=== PATIENT | female | born 2000 | race Caucasian/White ===

== ENCOUNTER 2023-05-29 15:30 | Emergency (ER) | payer BC, OTHER ==
[2023-05-29 15:50] VITALS: TEMP 98.3; BMI 23.8
[2023-05-29 17:37] LABS: EPI CELLS >36 /uL (0-25.1); HYALINE CASTS 1 /uL (0-3.1); PH,URINE 7.5 (5.0-8.0); URINE APPEARANCE TURBID; URINE BACTERIA 2461 /uL (0-1359); URINE BILIRUBIN NEGATIVE (NEGATIVE); URINE COLOR YELLOW; URINE GLUCOSE (UA) NEGATIVE (NEGATIVE); URINE KETONE NEGATIVE (NEGATIVE); URINE LEUK ESTERASE 1+ (NEGATIVE); URINE NITRITE NEGATIVE (NEGATIVE); URINE PROTEIN NEGATIVE (NEGATIVE); URINE RBC 9 /uL (0-23.9); URINE WBC 18 /uL (0-25.8)
[2023-05-29 17:38] LABS: HCG,QUALITATIVE URINE Negative
[2023-05-29] MEDS ORDERED: CEFTRIAXONE 1 GM in DEXTROSE 5%-WATER - 100 ML IVPB ONE (18:16)
[2023-05-29] MEDS ORDERED: SODIUM CHLORIDE 1,000 ML IV STA (18:16)
[2023-05-29] MEDS ORDERED: KETOROLAC TROMETHAMINE 30 MG/1 ML VIAL IVPUSH ONE (18:17)
[2023-05-29] MEDS ORDERED: CEFTRIAXONE 1 GM/50 ML BAG ONE (20:02)
[2023-05-29 20:40] LABS: BASO % 0.6 % (0-2.0); EOS % 0.9 % (0-4.5); HEMATOCRIT 39.2 % (32.4-45.2); HEMOGLOBIN 12.9 GM/dL (10.7-15.3); MCH 31.2 pg (25.7-33.7); MEAN CELL VOLUME 94.6 fl (80-96); MEAN PLT VOLUME 8.6 fl (7.5-11.1); NEUT % 49.5 % (42.8-82.8); PLATELET COUNT 234 10^3/uL (134-434); RBC 4.15 M/mm3 (3.60-5.2); RDW 13.2 % (11.6-15.6); WHITE BLOOD COUNT 8.2 K/mm3 (4.0-10.0)
[2023-05-29] MEDS ORDERED: KETOROLAC TROMETHAMINE 30 MG/1 ML VIAL ONE (20:47)
[2023-05-29 20:55] LABS: POTASSIUM 3.8 mmol/L (3.5-5.1)
[2023-05-29 20:57] LABS: ALBUMIN 3.8 g/dl (3.4-5.0)
[2023-05-29 20:58] LABS: BLOOD UREA NITROGEN 12.5 mg/dL (7-18)
[2023-05-29 21:00] LABS: CREATININE 0.7 mg/dL (0.55-1.3)
[2023-05-29 21:02] LABS: BILIRUBIN,TOTAL 0.6 mg/dL (0.2-1); TOT PROT 7.1 g/dl (6.4-8.2)
[2023-05-29 21:47] VITALS: BP 110/41; PULSE 62; RESP 18
== END 2023-05-29 23:09 | disposition home or self-care (01) ==
LOC: JER 15:30
PROC: 3E03329 Introduction of Other Anti-infective into Peripheral Vein, Percutaneous Approach (ICD-10-PCS; principal; 2023-05-29)
PROC: 3E0333Z Introduction of Anti-inflammatory into Peripheral Vein, Percutaneous Approach (ICD-10-PCS; 2023-05-29)
PROC: 3E0337Z Introduction of Electrolytic and Water Balance Substance into Peripheral Vein, Percutaneous Approach (ICD-10-PCS; 2023-05-29)
DX: R10.30 Lower abdominal pain, unspecified (principal); N39.0 Urinary tract infection, site not specified; N83.201 Unspecified ovarian cyst, right side; M54.9 Dorsalgia, unspecified; R11.0 Nausea; Z20.822 Contact with and (suspected) exposure to COVID-19
CPT/HCPCS: 0241U-QW; 36415; 76830-TC; 80053; 81003; 84703; 85025; 87077; 87086; 87186; 99284-25

== ENCOUNTER 2024-01-18 05:46 | Emergency (ER) | payer BC, OTHER ==
[2024-01-18 05:54] VITALS: TEMP 98; BMI 32.5
[2024-01-18] MEDS ORDERED: FAMOTIDINE 20 MG TABLET ONE (06:27)
[2024-01-18] MEDS ORDERED: ACETAMINOPHEN 325 MG TABLET (FP) ONE (06:28)
[2024-01-18] MEDS ORDERED: MAG HYDROX/AL HYDROX/SIMETH 30 ML UNIT-DOSE CUP ONE (06:28)
[2024-01-18] MEDS ORDERED: DOCUSATE SODIUM 100 MG CAPSULE (FP) PO ONE (06:28)
[2024-01-18] MEDS ORDERED: ONDANSETRON *ODT* 4 MG TABLET ONE (06:28)
[2024-01-18] MEDS: FAMOTIDINE 20 MG TABLET PO ONE (06:36)
[2024-01-18] MEDS: ACETAMINOPHEN 500 MG TABLET (FP) PO ONE (06:36)
[2024-01-18] MEDS: DOCUSATE NA 100 MG/10 ML UNIT-DOSE CUPS PO ONE (06:36)
[2024-01-18] MEDS: MAG HYDROX/AL HYDROX/SIMETH 30 ML UNIT-DOSE CUP PO ONE (06:36)
[2024-01-18] MEDS: ONDANSETRON 4 MG TABLET PO ONE (06:36)
[2024-01-18] MEDS ORDERED: ONDANSETRON 4 MG/2 ML VIAL ONE (06:51)
[2024-01-18] MEDS: ONDANSETRON 4 MG/2 ML VIAL IVPUSH PRN (07:03)
[2024-01-18] MEDS: SODIUM CHLORIDE 0.9% 500 ML INFUS.BAG IV ONE (07:03)
[2024-01-18 08:01] LABS: BASO % 0.3 % (0-2.0); EOS % 0.3 % (0-4.5); HEMATOCRIT 37.9 % (32.4-45.2); HEMOGLOBIN 12.8 GM/dL (10.7-15.3); LYMPH % 14.3 % (8-40); MCH 31.6 pg (25.7-33.7); MCHC 33.7 g/dl (32.0-36.0); MEAN CELL VOLUME 93.7 fl (80-96); MEAN PLT VOLUME 9.1 fl (7.5-11.1); MONO % 7.7 % (3.8-10.2); NEUT % 77.4 % (42.8-82.8); PLATELET COUNT 240 10^3/uL (134-434); RBC 4.04 M/mm3 (3.60-5.2); RDW 13.5 % (11.6-15.6); WHITE BLOOD COUNT 13.4 K/mm3 (4.0-10.0)
[2024-01-18 08:16] VITALS: BP 110/70; PULSE 72; RESP 14
[2024-01-18 08:36] LABS: POTASSIUM 3.9 mmol/L (3.5-5.1)
[2024-01-18 08:38] LABS: ALBUMIN 3.6 g/dl (3.4-5.0); BLOOD UREA NITROGEN 7.7 mg/dL (7-18); CALCIUM 9.1 mg/dL (8.5-10.1)
[2024-01-18 08:41] LABS: CREATININE 0.6 mg/dL (0.55-1.3)
[2024-01-18 08:43] LABS: BILIRUBIN,TOTAL 0.5 mg/dL (0.2-1); TOT PROT 6.4 g/dl (6.4-8.2)
[2024-01-18 08:49] LABS: EPI CELLS >36 /uL (0-25.1); HYALINE CASTS 3 /uL (0-3.1); PH,URINE 5.5 (5.0-8.0); URINE APPEARANCE CLOUDY; URINE BACTERIA 1719 /uL (0-1359); URINE BILIRUBIN 2+ (NEGATIVE); URINE COLOR ORANGE; URINE GLUCOSE (UA) NEGATIVE (NEGATIVE); URINE KETONE TRACE (NEGATIVE); URINE LEUK ESTERASE 1+ (NEGATIVE); URINE NITRITE POSITIVE (NEGATIVE); URINE PROTEIN 1+ (NEGATIVE); URINE RBC 25 /uL (0-23.9); URINE WBC 29 /uL (0-25.8)
== END 2024-01-18 08:31 | disposition home or self-care (01) ==
LOC: JER 05:46
DX: R11.2 Nausea with vomiting, unspecified (principal); R19.7 Diarrhea, unspecified; R10.30 Lower abdominal pain, unspecified; Z20.822 Contact with and (suspected) exposure to COVID-19
CPT/HCPCS: 0241U-QW; 36415; 80053; 81003; 85025; 87086; 99284-25

== ENCOUNTER 2024-01-29 18:53 | Emergency (ER) | payer OTHER ==
[2024-01-29 19:05] VITALS: BP 101/66; PULSE 60; RESP 18; TEMP 98.4; BMI 23.3
[2024-01-29 20:51] LABS: BASO % 0.4 % (0-2.0); EOS % 0.7 % (0-4.5); HEMOGLOBIN 12.4 GM/dL (10.7-15.3); LYMPH % 37.1 % (8-40); MCH 31.2 pg (25.7-33.7); MCHC 33.6 g/dl (32.0-36.0); MEAN CELL VOLUME 92.7 fl (80-96); MEAN PLT VOLUME 8.9 fl (7.5-11.1); MONO % 6.5 % (3.8-10.2); NEUT % 55.3 % (42.8-82.8); PLATELET COUNT 249 10^3/uL (134-434); RBC 3.99 M/mm3 (3.60-5.2); RDW 13.7 % (11.6-15.6); WHITE BLOOD COUNT 10.3 K/mm3 (4.0-10.0)
[2024-01-29 20:52] LABS: URINE APPEARANCE CLEAR; URINE BILIRUBIN NEGATIVE (NEGATIVE); URINE COLOR YELLOW; URINE GLUCOSE (UA) NEGATIVE (NEGATIVE); URINE KETONE NEGATIVE (NEGATIVE); URINE LEUK ESTERASE NEGATIVE (NEGATIVE); URINE NITRITE NEGATIVE (NEGATIVE); URINE PROTEIN NEGATIVE (NEGATIVE); URINE UROBILINOGEN 0.2 mg/dL (0.2-1.0)
[2024-01-29 21:00] LABS: INR 0.97 (0.83-1.09); PROTHROMBIN TIME (PATIENT) 11.2 SEC (9.7-13.0)
[2024-01-29 21:03] LABS: ACTIVATED PTT 35.2 SECONDS (25.2-36.5)
[2024-01-29 21:12] LABS: POTASSIUM 3.9 mmol/L (3.5-5.1)
[2024-01-29 21:15] LABS: BLOOD UREA NITROGEN 8.7 mg/dL (7-18); CALCIUM 9.1 mg/dL (8.5-10.1)
[2024-01-29 21:18] LABS: CREATININE 0.5 mg/dL (0.55-1.3)
[2024-01-29 21:20] LABS: BILIRUBIN,TOTAL 0.5 mg/dL (0.2-1); TOT PROT 7.1 g/dl (6.4-8.2)
== END 2024-01-29 22:22 | disposition home or self-care (01) ==
LOC: JER 18:53
DX: O26.899 Other specified pregnancy related conditions, unspecified trimester (principal); R10.2 Pelvic and perineal pain; Z3A.00 Weeks of gestation of pregnancy not specified
CPT/HCPCS: 36415; 76817-TC; 80053; 81003; 84702; 85025; 85610; 85730; 86850; 86900; 86901; 99284-25

== ENCOUNTER 2024-01-31 17:35 | Emergency (ER) | payer OTHER ==
[2024-01-31 17:43] VITALS: BP 109/68; PULSE 57; RESP 18; TEMP 98.2; BMI 23.3
== END 2024-01-31 18:44 | disposition home or self-care (01) ==
LOC: JERFT 17:35 → JER 17:35 → JERFT 18:44
DX: Z32.00 Encounter for pregnancy test, result unknown (principal)
CPT/HCPCS: 36415; 84702; 99283-25

== ENCOUNTER 2024-02-02 10:55 | Emergency (ER) | payer OTHER ==
[2024-02-02 11:05] VITALS: BP 121/58; PULSE 69; RESP 18; TEMP 98.8; BMI 23.3
== END 2024-02-02 12:51 | disposition home or self-care (01) ==
LOC: JERFT 10:55 → JER 10:55 → JERFT 12:51
DX: Z32.00 Encounter for pregnancy test, result unknown (principal)
CPT/HCPCS: 36415; 84702; 99283-25